=== PATIENT | male | born 1945 | race Caucasian/White ===

== ENCOUNTER 2018-11-06 14:39 | Inpatient (IN) ==
[2018-11-06 17:28] LABS: BASO# 0.03 X1000 (0.0-0.2); BASO% 0.4 % (0.0-0.8); EOS# 0.14 X1000 (0.0-0.7); EOS% 1.8 % (0.0-10.0); HEMATOCRIT 46.1 % (42.0-52.0); HEMOGLOBIN 15.7 g/dL (14.0-18.0); IMM GRAN# 0.02 X1000 (0.0-0.04); IMM GRAN% 0.3 % (0.0-0.5); LYMPH# 2.39 X1000 (1.2-3.4); LYMPH% 30.3 % (20.5-51.1); MCH 33.3 PG (27-31); MCHC 34.1 g/dL (33-37); MCV 97.9 FL (81-99); MONO# 0.95 X1000 (0.11-0.59); MONO% 12.1 % (1.7-9.3); MPV 9.8 FL (7.4-10.4); NEUT# 4.35 X1000 (1.4-6.5); NEUT% 55.1 % (42.2-75.2); PLT 178 X1000 (130-400); RBC 4.71 XMIL (4.7-6.1); RDW 12.3 % (11.5-14.5); WBC 7.88 X1000 (4.8-10.8)
[2018-11-06 17:39] LABS: URINE SOURCE CLEAN CATCH
[2018-11-06 17:44] LABS: BILIRUBIN URINE NEGATIVE (NEGATIVE); BLOOD URINE NEGATIVE (NEGATIVE); COLOR YELLOW; GLUCOSE URINE NEGATIVE (NEGATIVE); KETONE URINE NEGATIVE (NEGATIVE); LEUKOCYTES URINE NEGATIVE (NEGATIVE); NITRITE URINE NEGATIVE (NEGATIVE); PROTEIN URINE 30 mg/dL (NEGATIVE); SP GRAVITY URINE 1.026; TURBIDITY URINE CLEAR (CLEAR); UROBILINOGEN URINE NORMAL (NORMAL)
[2018-11-06 17:45] LABS: UR EPITHELIAL CELLS <10 /HPF (<10); URINE BACTERIA NEGATIVE /HPF; URINE RBC <10 /HPF (<10); URINE WBC <10 /HPF (<10)
[2018-11-06 17:56] LABS: AGAP 10; ALB/GLOB RATIO 1.8; ALBUMIN 4.4 g/dL (3.5-5.0); ALKALINE PHOSPHATASE 70 U/L (32-122); BUN 18 mg/dL (8-22); CALCIUM 9.1 mg/dL (8.8-10.2); CHLORIDE 107 mmol/L (98-107); COSMO 287; ESTIMATED GFR > 60; GLUCOSE 97 mg/dL (70-104); GOT 52 U/L (10-34); GPT 48 U/L (10-44); POTASSIUM 4.4 mmol/L (3.5-5.1); SODIUM 143 mmol/L (136-145); TCO2 26 mmol/L (25-35); TOTAL BILIRUBIN 0.58 mg/dL (0.20-1.00); TOTAL PROTEIN 6.8 g/dL (6.3-8.3)
[2018-11-06] MEDS ORDERED: NS 1,000 ML IV ONE ×2 (18:07→18:57)
--- NOTE | 2018-11-06 20:17 | PROVIDER DOCUMENTATION ---
This chart was entered by Breonna Monahan Scribe, acting as scribe for Jennifer Rivas MD. HPI-General Adult - General Chief Complaint: General Adult Stated Complaint: SWEATING.... CANT WALK/HANDS DRAWING Time Seen by Provider: 11/06/18 16:45 Source: patient, family Allergies/Adverse Reactions: Patient Allergies Allergy/AdvReac Type Severity Reaction Status Date / Time No Known Allergies Allergy Verified 11/06/18 19:40 Home Medications: Home Medication List Medication Instructions Recorded Confirmed Last Taken Type Aspirin 325 mg PO DAILY 11/06/15 11/06/18 11/05/15 11:00 History Bupropion S.r. [Wellbutrin Sr] 150 mg PO QAM 11/06/15 11/06/18 11/05/15 11:00 History Buspirone [Buspar] 10 mg PO BID 11/06/15 11/06/18 11/05/15 23:00 History Ca Citrate/Mgox/Vit D3/B6/Min 1 each PO DAILY 11/06/15 11/06/18 11/05/15 11:00 History [Citracal Plus Tablet] Glucosamine 1,500 mg PO DAILY 11/06/15 11/06/18 11/05/15 11:00 History Clopidogrel [Plavix] 75 mg PO DAILY 11/06/18 11/06/18 Unknown History Cyanocobalamin [Vitamin B-12] 2,500 mcg PO DAILY 11/06/18 11/06/18 Unknown History Isosorbide Mononitrate [Isosorbide 30 mg PO DAILY 11/06/18 11/06/18 Unknown History Mononitrate ER] Losartan [Cozaar] 100 mg PO DAILY 11/06/18 11/06/18 Unknown History Magnesium 400 mg PO DAILY 11/06/18 11/06/18 Unknown History Melatonin 5 mg PO HS 11/06/18 11/06/18 Unknown History Montelukast Sodium [Singulair] 10 mg PO DAILY 11/06/18 11/06/18 Unknown History Pantoprazole Sodium 40 mg PO DAILY 11/06/18 11/06/18 Unknown History Pyridostigmine [place] 60 mg PO DAILY 11/06/18 11/06/18 Unknown History Torsemide 10 mg PO DAILY 11/06/18 11/06/18 Unknown History Ubidecarenone [Co Q-10] 800 mg PO DAILY 11/06/18 11/06/18 Unknown History - History of Present Illness -Gen Adult Nature of Presenting Problems: 73 yom presents to the ed with c/o excessive sweating, BLE edema with weakness, hands/fingers drawing and possible dehydration. pt has been seen at and has been followed by neuro without a dx given. dr nascimento is not the pt pcp but will see pt at bedside. Location of Pain/Injury: reports: hand(s), lower extremity Quality of Pain: reports: aching Severity: reports: moderate Onset/Duration: reports: other (10 weeks) Timing: reports: still present Context/Activities at Onset: reports: light activity Modifying Factors: improves with: nothing Associated Symptoms: reports: diaphoresis, fatigue, genitourinary problems ( dark strong urine), weakness (BLE weakness), trouble walking. denies: back/ neck pain, chest pain, diarrhea, fever/chills, nausea, shortness of breath Similar Symptoms Previously?: Yes Recently seen or treated by another doctor?: Yes (has been seen in ) Review of Systems - Adult - REVIEW OF SYSTEMS - ADULT Constitutional: reports: see HPI, fatique. denies: chills, fever Eyes: reports: no symptoms reported Ears, Nose, Mouth & Throat: reports: no symptoms reported Cardiovascular: reports: edema. denies: chest pain, palpitations Respiratory: denies: cough, shortness of breath Gastrointestinal: denies: abdominal pain, diarrhea, nausea, vomiting Genitourinary: reports: see HPI, other (dark urine with strong smell). denies: dysuria Musculoskeletal: reports: see HPI, muscle aches, muscle weakness (BLE weakness) Integumentary: reports: no symptoms reported Neurological: denies: dizziness/vertigo, headache/migraines Psychiatric: reports: no symptoms reported Endocrine: reports: see HPI, excessive sweating Hematologic/Lymphatic: reports: no symptoms reported Allergic/Immunologic: reports: no symptoms reported Past History - Adult - PAST MEDICAL HISTORY-ADULT Review of Records: reports: Old Records Reviewed, Nursing Assessment Review, Medications Reviewed, Social history reviewed & non-contributory. Major Childhood Illnesses: reports: denies history Cardiovascular: reports: HTN, hyperlipidemia Respiratory: reports: denies history Gastrointestinal: reports: denies history Genitourinary: reports: denies history Musculoskeletal: reports: denies history Neurological: reports: denies history Psychiatric: reports: denies history Endocrine/Immune: reports: denies history Other Conditions: reports: denies history - PRIOR SURGERIES/PROCEDURES Surgical/Procedure History: reports: other (Barrets ) - IMMUNIZATION STATUS Childhood Immunizations: See Nurse Assessment Flu Vaccine: See Nurse Assessment - FAMILY HISTORY Family History: reviewed, not pertinent - SOCIAL HISTORY Smoking: denies Substance Use: denies Alcohol Use Frequency: never Living Situation: family Physical Exam-General - PHYSICAL EXAM-ADULT Initial Vital Signs Reviewed: Yes - CONSTITUTIONAL General Appearance: alert, no apparent distress - EYES Eyes: PERRL/EOMI, pale conjunctivae - HEAD, EARS, NOSE, MOUTH & THROAT HENMT: negative: moist mucous membranes (dry) - NECK Neck: full range of motion, normal inspection - RESPIRATORY Respiratory: chest non-tender, lungs clear, normal breath sounds - CARDIOVASCULAR Cardiovascular: normal peripheral pulses, tachycardia (110) - GASTROINTESTINAL (ABDOMEN) Abdominal Exam: normal bowel sounds, non tender, soft - LYMPHATIC Lymphatic: no adenopathy - MUSCULOSKELETAL Back Exam: normal inspection, no CVA tenderness, no vertebral tenderness Extremity: pedal edema, swelling (BLE), tenderness (BLE), other (hands/fingers contracted) - SKIN Integumentary: warm/dry, swelling (RLE 3+ LLE1+), tenderness (BLE edema) - NEUROLOGIC Neurologic: grossly normal Progress - PLAN OF CARE/RESULTS Progress/Plan/Lab Results: Vital Signs - 8 hr 11/06/18 15:13 Temperature 98.1 F Pulse Rate 110 H Respiratory Rate 18 Blood Pressure 156/76 O2 Sat by Pulse Oximetry 98 Result Diagrams: 11/06/18 17:10 11/06/18 17:10 - REASSESSMENT Reassessment #1 Time Reassessed: 19:25 Status: unchanged (Seen by Dr. Nascimento, plan is to admit him for further investigation.) - EKG 1 Time of EKG reading by physician:: 17:21 EKG Read and Signed by:: Paulina Encarnacion EKG Interpretation (*Must complete 3 of following elements*): Normal Rate: 101 Rhythm: ST with PAC with aberrant conduction [place]: normal QRS: normal [place] Interval: normal ST Wave: normal 2 Time of EKG reading by physician:: 17:22 EKG Read and Signed by:: Paulina Encarnacion EKG Interpretation (*Must complete 3 of following elements*): Normal (borderline ) Rate: 97 Rhythm: nsr [place]: normal QRS: normal [place] Interval: normal ST Wave: depressed (junctional ST depression, probably normal) Prior EKG Comparison: changes noted - CONSULTS/PCP/HOSPITALIST Notification #1 *Consult/PCP/Hospitalist*: dr nascimento coming to ed Reason/Comments: as a favor to the family per family Consult Disposition: Will see in ED Departure - Departure Date of Disposition Decision: 11/06/18 Time of Disposition Decision: 19:43 DIAGNOSIS: Orthostatic hypotension Weakness of lower extremity Qualifiers: Laterality: bilateral Qualified Code(s): R29.898 - Other symptoms and signs involving the musculoskeletal system Disposition: ADMITTED INPATIENT 09 Certified Medical Emergency: Emergent Condition: Stable Referrals and Follow-Ups: Netta Head MD [Primary Care Provider] - - Critical Care Note This patient required my direct & personal management of CC.: No Attestation - Physician/ KASI Attestation Patient care was provided by Advanced Practice Provider:: No The physician spent face to face time with patient:: Yes Advanced Practice Provider documentation review:: Supervising physician onsite and consulted in the evaluation and care of this patient. The physician did have a face to face encounter with the patient. This chart was documented by the indicated scribe, (Breonna Monahan Scribe) and accurately reflects the services I performed and decisions made by me, Jennifer Rivas MD, as attested by the provider's signature.
[2018-11-06 21:04] LABS: CK INDEX 1.6 (0.0-2.5); CK-MB 9.27 ng/mL (0.0-5.0)
[2018-11-06 21:09] LABS: C REACTIVE PROT QUANT 1.29 mg/L (0.00-5.00); MAGNESIUM 2.1 mg/dL (1.5-2.7); PHOSPHORUS 2.7 mg/dL (2.7-4.5)
[2018-11-06 21:19] LABS: FREE T4 1.52 ng/dL (0.93-1.70); TSH 2.52 uIUmL (0.27-4.20)
[2018-11-06] MEDS ORDERED: LOVENOX SUBQ SCH (21:30)
[2018-11-06] MEDS ORDERED: NS 1,000 ML ONE (21:35)
[2018-11-06] MEDS ORDERED: NS 50 ML ONE (21:35)
[2018-11-06] MEDS: PROTONIX IV SCH (21:47)
[2018-11-06] MEDS: NS 1,000 ML IV SCH (21:47)
--- NOTE | 2018-11-06 22:33 | HISTORY AND PHYSICAL ---
CHIEF COMPLAINT: Profuse sweating, not able to walk, muscle weakness, cramping for the last 3 months. HISTORY OF PRESENT ILLNESS: He is a 73-year-old white gentleman, who basically was brought in at the request of the family members to my office as a 2nd opinion. He had a slowly dwindling of his activities, not able to walk, with weakness and cramping. It has been started 11 weeks ago. The patient had an extensive workup done before. He had Lyme disease, negative. He had elevated CK, aldolase. Initially, thought it was myopathy from the Lipitor. It was stopped 11 weeks ago. Despite, continues to have muscle weakness, not able to walk. He was seen by the neurologist in [place]. The patient had EMG studies, which is consistent with myopathy, polymyositis. Acetyl receptor antibody was negative. The patient had a left thigh biopsy done by [facility], Dr. Mai. It showed denervation atrophy. The patient also referred for an LP and ENT evaluation. Family was confused. He was started on pyridostigmine 2 weeks ago , with extremely profuse sweating. I did review all the previous reports. He also had a positive KARLEE and positive anti DS DNA. It looks like more connective tissue diseases, possible polymyositis. Previous Work UP 1. The patient denies any skin rashes. No joint pains. The patient had an extensive workup done. MRI of the brain showed lacunar stroke on the left side. 2. CT of the chest and CT of the abdomen and pelvis unremarkable, except diverticulosis and enlarged prostate. There was no paraneoplastic disease noted. The patient did not have any ptosis or any difficulty in swallowing. The patient was orthostatic, given IV fluids. He was also seen in [facility]. I discussed with Dr. Sanz, and we will rule out connective tissue disease workup. Based on that, further treatment will be initiated. PAST MEDICAL HISTORY: 1. History of pulmonary embolism in the past. 2. Hypertension. 3. Acid reflux disease, with Hicks's esophagitis. 4. DVT in the right leg. 5. Coronary artery disease, by Dr. Fitch. 6. Benign prostatic hypertrophy. 7. Diverticulosis. 8. Lacunar stroke on the left side. PAST SURGICAL HISTORY: Three stents. Bilateral middle ear tubes. Bilateral cataract surgery. ALLERGIES: Not known. MEDICATIONS: Citracal, with 1 tablet daily. Aspirin 325 daily. Wellbutrin 150 daily. BuSpar 10 p.o. b.i.d. Plavix 75 daily. B12 2500 mcg daily. Isosorbide 60 daily. Cozaar 100 daily. Melatonin 5 mg daily. Singulair 10 daily. Protonix 40 daily. Pyridostigmine 60 daily. Magnesium 400 daily. Torsemide 10 mg daily. SOCIAL HISTORY: , 2nd time. Retired from [employer]. No smoking. Used to drink alcohol. Lives in [place], 2 children. FAMILY HISTORY: Father of colon cancer at 67. Father of NH at 82. Brother had a PID. HEALTH MAINTENANCE: Flu vaccine in 2018, pneumococcal vaccine in 2018, shingles 2017, colonoscopy [place] [address] Peoples in [place]. REVIEW OF SYSTEMS: HEENT: No headache. No vision problem. Chronic allergies , postnasal drainage. Seen by Dr. Dougherty. No sore throat. No tongue fasciculations. No weakness in the facial muscles. Neck: No neck pain. No goiter. No lymphadenopathy. Cardiopulmonary: No chest pain, shortness of breath, PND, or orthopnea. GI: No nausea, vomiting, abdominal pain, trouble swallowing. No bleeding per rectum. : No history of hesitancy, frequency, dysuria. Extremities: Cramping in the legs. Not able to walk. Weakness. Integument: No skin rashes. No joint pain. Neurologic: No focal symptoms or weakness or deficits noted. EXAMINATION: Vital Signs: He was orthostatic, as per the ED physician. Temperature is 98 degrees, tachycardic. Weight 5 feet, 9 inches. 220 pounds. HEENT: Atraumatic , normocephalic. Pupils equal, react to light. Bilateral cataracts removed. Tongue is in midline. No fasciculations noted. No facial asymmetry. No ptosis present. Neck: Supple. No lymphadenopathy. No goiter. Chest: Bilateral air entry. Heart: Sounds are regular. No murmurs appreciated. Abdomen: Belly is soft, nontender. Good bowel sounds. Rectal: Deferred. Extremities: Right leg is diffusely swollen, than the left side. Not able to feel the pulses. He is slightly weak and cramping in the feet and the legs. No obvious deficits noted. INVESTIGATIONS: CBC: White cell count 7.8, hematocrit 46, platelet 178,000, D- dimer 3.3. SMA-7 was normal. Elevated LFTs. LDH 380. CK 575. ProBNP 496. Urinalysis is clear. EKG, chest x- ray is pending. Previous workup in [facility] reviewed. MRI of the brain, CT chest, CT abdomen and pelvis unremarkable. EMG consistent with myopathy, with polymyositis. Elevated KARLEE and anti DS DNA. ASSESSMENT AND PLAN: 1. A 73-year-old white gentleman who came in with muscle weakness, status post scar in the left thigh muscle biopsy. Elevated CK, aldolase, myoglobin, consistent with myopathy. Based on the EMG studies, rule out polymyositis. The plan is repeat anti KARLEE, connective tissue cascade, anti Mi-2, anti synthetase antibody. Follow up on CK, aldolase, LDH. 2. Swelling of right leg, history of DVT. Venous Dopplers in both legs. Also, start on Lovenox. 3. Coronary artery disease with stents, stable. Continue aspirin, Plavix, isosorbide. 4. Hypotension. IV fluids. 5. Profuse sweating, probably related to medicines from pyridostigmine. Will discontinue, since acetyl receptor antibody is negative. 6. Reconcile home medicines. 7. DVT and GI prophylaxis with Lovenox and Protonix respectively. 8. I discussed with Dr. Sanz. Consult in the morning. cc: Sean Davidson MD MTDD
[2018-11-07] MEDS: MAG-OX PO SCH (08:12)
[2018-11-07] MEDS: BUSPAR PO SCH ×2 (08:12→22:21)
[2018-11-07] MEDS: PLAVIX PO SCH (08:12)
[2018-11-07] MEDS: IMDUR PO SCH (08:12)
[2018-11-07] MEDS: DEMADEX PO SCH (08:13)
[2018-11-07] MEDS: VITAMIN B-12 PO SCH (08:13)
[2018-11-07] MEDS: WELLBUTRIN SR PO SCH (08:14)
[2018-11-07] MEDS: ASPIRIN PO SCH (08:14)
[2018-11-07] MEDS: SINGULAIR PO SCH (08:14)
[2018-11-07] MEDS: NS 1,000 ML IV SCH ×2 (08:16→10:02)
--- NOTE | 2018-11-07 08:21 | EKG Report ---
Test Performed on : 11/06/2018 5:22:01 PM Test Reason : cp Blood Pressure : / mmHG Vent. Rate : 097 BPM Atrial Rate : 097 BPM P-R Int : 146 ms QRS Dur : 080 ms QT Int : 354 ms P-R-T Axes : 028 009 027 degrees QTc Int : 449 ms Normal sinus rhythm. Junctional ST depression, probably normal Borderline ECG No previous ECGs available Unconfirmed Result
[2018-11-07] MEDS ORDERED: VITAMIN B-12 PO SCH (09:00)
[2018-11-07] MEDS ORDERED: WELLBUTRIN SR PO SCH (09:00)
[2018-11-07] MEDS ORDERED: GLUCOSAMINE PO SCH (09:00)
[2018-11-07] MEDS ORDERED: IMDUR PO SCH (09:00)
[2018-11-07] MEDS ORDERED: DEMADEX PO SCH (09:00)
[2018-11-07] MEDS ORDERED: PLAVIX PO SCH (09:00)
[2018-11-07] MEDS ORDERED: SOLU-MEDROL IV SCH (09:00)
[2018-11-07] MEDS ORDERED: SINGULAIR PO SCH (09:00)
[2018-11-07] MEDS: PATIENT'S OWN MED PO SCH (09:28)
[2018-11-07] MEDS: GLUCOSAMINE 500 MG/CHONDROITIN 400 MG PO SCH (09:57)
[2018-11-07] MEDS: SOLU-MEDROL 1,000 MG in NS 100 ML IV SCH (09:57)
[2018-11-07] MEDS: LOVENOX SUBQ SCH ×2 (10:22→22:22)
[2018-11-07] MEDS ORDERED: MELATONIN 5 MG PO SCH (21:00)
[2018-11-07] MEDS: PROTONIX IV SCH (22:21)
[2018-11-07] MEDS: MELATONIN PO SCH (22:21)
--- NOTE | 2018-11-08 01:06 | PROGRESS NOTE ---
DATE: 11/07/2018 SUBJECTIVE: The patient complains off excessive drenching sweats for the last 11 weeks. Also, complains of some muscle stiffness, not able to walk. CK, LDH, AST, ALT were high. However, sedimentation rate, CRP were normal. Discussed with Dr. Sanz on the telephone. He agreed the patient has some type of myopathy, questionable polymyositis. Solu-Medrol 1 g IV daily for 3 days. Venous Doppler showed DVT on the right side, all the way to the common femoral floating. He had multiple DVTs in the past. Family was at bedside. EXAMINATION: Vital Signs: Temperature is 98 degrees, slightly tachycardic. Blood pressure is 140/76, 94% on room air. HEENT: Has excessive sweating. Neck: Supple. Chest: Clear. Heart: Sounds are regular. Abdomen: Belly is soft, nontender. Extremities: The right leg is swelled up, compared to the left side. Stiffness of the muscle and cramping. LABS: Myoglobin is high. ProBNP 496. PSA 473. ASSESSMENT AND PLAN: 1. Myopathy, suspicious for polymyositis. No evidence of malignancy. PSA was normal. IV Solu- Medrol 1 mg daily for 3 days. 2. Excessive sweating, hyperhidrosis. Etiology was not clear. Hydration. 3. 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 He needs to be on lifelong anticoagulants. We will do the thrombophilia workup. 4. Coronary artery disease, with multiple stents, on aspirin and Plavix. 5. Gastrointestinal prophylaxis with IV Protonix. 6. Follow up on the connective tissue cascade. 7. Anti Mi-2 and thrombophilia workup, and antisynthetase antibodies. 8. Physical therapy for ambulation. 9. Coordination of the care with family members and the consultants. LEVEL OF DOCUMENTATION: Almost 35 minutes. cc: Sean Davidson MD
[2018-11-08] MEDS: NS 1,000 ML IV SCH ×2 (05:13→10:53)
[2018-11-08 08:55] LABS: CK INDEX 1.7 (0.0-2.5); CK-MB 8.4 ng/mL (0.0-5.0)
[2018-11-08] MEDS: SOLU-MEDROL 1,000 MG in NS 100 ML IV SCH (09:39)
[2018-11-08] MEDS: VITAMIN B-12 PO SCH (09:40)
[2018-11-08] MEDS: ASPIRIN PO SCH (09:42)
[2018-11-08] MEDS: LOVENOX SUBQ SCH ×2 (09:42→23:20)
[2018-11-08] MEDS: BUSPAR PO SCH ×2 (09:43→23:21)
[2018-11-08] MEDS: WELLBUTRIN SR PO SCH (09:43)
[2018-11-08] MEDS: SINGULAIR PO SCH (09:43)
[2018-11-08] MEDS: GLUCOSAMINE 500 MG/CHONDROITIN 400 MG PO SCH (09:43)
[2018-11-08] MEDS: PLAVIX PO SCH (09:44)
[2018-11-08] MEDS: MAG-OX PO SCH (09:44)
[2018-11-08] MEDS: DEMADEX PO SCH (09:44)
[2018-11-08] MEDS: IMDUR PO SCH (09:44)
[2018-11-08] MEDS: PATIENT'S OWN MED PO SCH (10:53)
--- NOTE | 2018-11-08 12:44 | Extremity Venous Study ---
PROCEDURE NAME: Venous U/S Bilateral Legs - 11/06/2018 PROCEDURE: Bilateral lower extremity venous duplex and color-flow imaging study using the [employer] V[employer] E9 ultrasound system with a 9L-D transducer on a 73-year-old male. REFERRING PHYSICIAN: Dr. Osman Davidson CLOTH TESTER: Gladys Mckeon, TORREY INDICATIONS: Bilateral lower extremity pain and swelling suggestive of deep venous thrombosis. FINDINGS: The right common femoral vein and its branches, the deep and superficial femoral veins were satisfactorily imaged. There appears to be an acute deep venous thrombosis extending into the right common femoral vein from the right saphenofemoral junction. The deep venous branches of the right common femoral vein were compressible and had flow through them. The right popliteal vein was compressible and had flow through it without evidence of thrombus. The deep veins below the right knee were all compressible and had flow through them. The superficial veins, the great and small saphenous veins had clot within them, which appeared to be acute. The left common femoral vein and its branches, deep and superficial femoral veins were also satisfactorily imaged. They had flow through them and were compressible. The left popliteal vein and deep veins below the left knee were all compressible and had flow through them. The superficial veins of the left lower extremity were compressible throughout their length. INTERPRETATION: Acute superficial venous thrombosis involving the small and great saphenous veins. The clot within the right great saphenous vein extends into the right common femoral vein. There was no evidence of acute deep or superficial venous thrombosis involving the left lower extremity. cc: MD Sean Rangel MD
[2018-11-08] MEDS: SODIUM CHLORIDE 0.9% INJ SCH (23:20)
[2018-11-08] MEDS: PROTONIX IV SCH (23:20)
[2018-11-08] MEDS: MELATONIN PO SCH (23:21)
--- NOTE | 2018-11-09 03:53 | PROGRESS NOTE ---
DATE: 11/08/2018 SUBJECTIVE: I appreciated Dr. Sanz's input. Still, would try to unravel the diagnosis of his medical condition of muscle stiffness and sudorrhea. He had an extensive workup done from the previous neurologist. It includes EMG studies and muscle biopsy. Last night, he was drenching with sweats and dry mouth. REVIEW OF SYSTEMS: No chest pain, shortness of breath. Bleeding at the site of the Lovenox. He also has swelling of the right leg. INVESTIGATIONS: CK was high. Myoglobulin was high. Aldolase was high. PSA was normal. Anti FREEDOM panel connective tissue cascade was negative. ASSESSMENT AND PLAN: 1. Deep venous thrombosis, recurrent in the right leg, with pulmonary embolism. Thrombophilia workup is pending. Continue on Lovenox 1 mg of p.o. b.i.d. 2. Bleeding at the site. Hold aspirin. Continue on Plavix. 3. Coronary artery disease, with multiple stents, on Plavix, isosorbide. 4. Elevated CK, myoglobin, aldolase after stopping the statins. Positive CK. Normal sedimentation rate, normal CRP. Etiology is not clear. 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 Differential diagnosis: Neuromyotonia. Will check the voltage-gated potassium channel antibodies. 5. Currently, is getting IV steroids 1 g daily for 3 days. 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 I will discuss with the neurologist as well, and also consider carbamazepine or phenytoin for spasms. It is a very complex case. I need to coordinate to get the diagnosis between the senior security analyst and neurologist. Discussions were made with the family. Agreeable to stay in the hospital until he gets better. LEVEL OF DOCUMENTATION: 35 minutes. cc: Sean Davidson MD
[2018-11-09] MEDS: NS 1,000 ML IV SCH (05:28)
[2018-11-09] MEDS: GLUCOSAMINE 500 MG/CHONDROITIN 400 MG PO SCH (09:27)
[2018-11-09] MEDS: SOLU-MEDROL 1,000 MG in NS 100 ML IV SCH (09:27)
[2018-11-09] MEDS: DEMADEX PO SCH (09:28)
[2018-11-09] MEDS: WELLBUTRIN SR PO SCH (09:28)
[2018-11-09] MEDS: BUSPAR PO SCH ×2 (09:28→21:16)
[2018-11-09] MEDS: IMDUR PO SCH (09:29)
[2018-11-09] MEDS: MAG-OX PO SCH (09:29)
[2018-11-09] MEDS: VITAMIN B-12 PO SCH (09:29)
[2018-11-09] MEDS: PLAVIX PO SCH (09:30)
[2018-11-09] MEDS: SINGULAIR PO SCH (09:31)
[2018-11-09] MEDS: PATIENT'S OWN MED PO SCH (09:31)
--- NOTE | 2018-11-09 19:35 | CONSULTATION ---
DATE OF CONSULTATION: 11/09/2018 HISTORY OF PRESENT ILLNESS: Mr. Nagy is 73 years old and he reports stiffness in the limbs, unsteady gait, profuse sweating. History from the patient, confirmed by attentive family at the bedside, but still of uncertain validity, is that he went to bed one night, 11 weeks ago feeling very well with no gait difficulty, limb weakness, stiffness, and no significant discomfort in the limbs. He woke the next morning, unable to stand and walk because of stiffness in the leg muscles. When he attempted to use his hands, there was involuntary contraction (he demonstrates fingers flexed at the MP joints and extended at the IP joints). He reports requiring help to get around. He reports stable course over the next several weeks with no significant improvement and no deterioration. When he was sitting or reclined and relaxed, he did not notice discomfort or definite abnormal muscle contraction in the limbs. At times, there would be occasional spontaneous posturing of the hands as described above, but more often that was triggered by attempts to use the hands. He noticed that when he gripped something firmly, he could not let go quickly. He noticed stiffness in the legs would occur when he attempted to bear weight, but did not seem present while not bearing weight. Symptoms did not generally wake him from sleep. Right and left limbs were equally afflicted. He reports extensive sweating, more prominent during sleep. He reports sleeping for 1 to 2 hours and then getting up to change bed clothes and sheets. His sleep was disturbed more by sweating than by the muscle stiffness and contraction. He reports 20 pounds weight loss over the first 4 to 6 weeks with this illness. There was no trouble chewing or swallowing, no slurred speech, no loss of appetite. He did not record fever. He did not report hard shaking chills. There was no skin rash. After the first 4 to 6 weeks, weight stabilized and he has not lost more weight. There was no associated vision disturbance, facial asymmetry, abnormal facial muscle contraction, ptosis. He does not report specific loss of muscle power in the limbs. He did not notice definite incoordination. His gait was unsteady because of stiffness in the legs. He fell a few times, but has not fallen in recent weeks. There was no incontinence. He has had extensive workup in recent months. All imaging reported unremarkable. He has had neurology evaluation with Dr. Goss in [place]. Mr. Nagy provided a copy of the EMG report showing increased motor unit recruitment and prominent polyphasic motor unit potentials recorded in several muscles, but no spontaneous activity. Nerve conduction study showed evidence of peripheral neuropathy. There was subsequent muscle biopsy which was remarkable only for minor denervation changes. He has had extensive lab work with no definite findings. There was low titer acetylcholine receptor antibody reported. All other autoimmune panel negative. He had a trial with pyridostigmine without benefit. CK was elevated 575, 495. Aldolase slightly elevated 8.2. Myoglobin elevated at 290. Sed rate 5. AST 47, 52 and ALT 48. Normal TSH and free T4. Calcium 9.1. Positive KARLEE, DS-DNA slightly elevated at 212. He had a trial off of his statin drug with no significant benefit reported. He started high dose steroids here a few days ago and reports definite significant improvement. PHYSICAL EXAMINATION: On exam, Mr. Nagy is awake, alert, attentive, appropriate. Speech is not dysarthric. Language function is intact. Recent and remote memory are good. Head and neck are unremarkable. Hands and feet are warm. There is significant pitting edema distally and symmetrically in the legs. Visual kiran are full, tested by confrontational finger counting with both eyes open. Extraocular movements are full. Facial motility is normal and symmetric. Facial sensation is intact to pinprick and light touch testing. Gag is intact. Tongue is midline. Palate is midline. Hearing is fair. Shoulder shrug is equal. He has good power in the arms and legs. I could not find definite loss of muscle power in any 1 muscle or group of muscles. There is inconsistent french binding folder myotonia bilaterally. I could not elicit percussion myotonia. Tone seems a little bit increased throughout, more in the legs than the arms. He did well on gguw-vw-[id number] and agzbfh-[id number] testing bilaterally. He performed rapid alternating movements well with the hands. He reports good pinprick appreciation over the hands. He has minimal stocking pattern of sensory loss to pinprick at the ankles. Proprioception is good. Reflexes are 1+ at the wrists, 2+ at the biceps, 1+ at the knees, trace at the ankles bilaterally. Plantar response is silent bilaterally. Gait is little bit wide-based, more prominently antalgic. He stood without assistance. He took steps without assistance. He was able to place his feet properly for heel-to-toe tandem walking without assistance. He was able to partially squat and rise without assistance. IMPRESSION: Reported stiffness in the limbs, EMG raising concern for myopathy without definitive findings, unremarkable muscle biopsy, mostly unremarkable extensive lab work. No definite evidence of encephalopathy or myelopathy. There is nerve conduction and minimal clinical evidence of peripheral neuropathy. His report of sudden onset with stable course is difficult to with a degenerative neurologic process. Associated night sweats and weight loss are noted. I do not have any urgent suggestion. I told Mr. Nagy and his family that we might repeat the EMG, continue with autoimmune lab workup and check spinal fluid. However, I think best management would be to consider referral to a neuromuscular clinic. If Mr. Nagy would like to have further workup in [place], I will be glad to try to arrange that. Otherwise, he might follow up with Dr. Goss or, as I have recommended, accept referral to a neuromuscular clinic. Thanks for asking me to see Mr. Nagy. cc: MD Sean Spain III, MD [facility] HOSPITALMargarita
[2018-11-09 19:51] LABS: HEMOGLOBIN 13.4 g/dL (14.0-18.0); IMM GRAN# 0.05 X1000 (0.0-0.04); IMM GRAN% 0.7 % (0.0-0.5); LYMPH# 0.73 X1000 (1.2-3.4); LYMPH% 9.6 % (20.5-51.1); MCH 33.5 PG (27-31); MCHC 33.5 g/dL (33-37); MONO# 0.31 X1000 (0.11-0.59); MONO% 4.1 % (1.7-9.3); MPV 10.2 FL (7.4-10.4); NEUT# 6.52 X1000 (1.4-6.5); NEUT% 85.6 % (42.2-75.2); PLT 168 X1000 (130-400); RDW 12.4 % (11.5-14.5); WBC 7.61 X1000 (4.8-10.8)
[2018-11-09 20:18] LABS: AGAP 10; ALB/GLOB RATIO 1.5; ALBUMIN 3.7 g/dL (3.5-5.0); ALKALINE PHOSPHATASE 55 U/L (32-122); BUN 27 mg/dL (8-22); CALCIUM 9.1 mg/dL (8.8-10.2); CHLORIDE 105 mmol/L (98-107); COSMO 292; CREATININE 0.8 mg/dL (0.7-1.2); ESTIMATED GFR > 60; GLUCOSE 166 mg/dL (70-104); GOT 26 U/L (10-34); GPT 35 U/L (10-44); POTASSIUM 3.7 mmol/L (3.5-5.1); SODIUM 142 mmol/L (136-145); TCO2 27 mmol/L (25-35); TOTAL BILIRUBIN 0.34 mg/dL (0.20-1.00); TOTAL PROTEIN 6.1 g/dL (6.3-8.3)
--- NOTE | 2018-11-09 20:34 | PROGRESS NOTE ---
DATE: 11/09/2018 SUBJECTIVE: I discussed with Dr. Leung to evaluate the previous EMG studies, and pending the diagnosis of neuromyotonia. Patient is slightly improving with steroids. I did review the previous workup so far. Voltage-gated potassium channels were negative. ROLLY was negative. He still has some stiffness and decreased hyperhidrosis. EXAMINATION: Vital Signs: Temperature is 98 degrees, vitals are stable. HEENT: Within normal limits. Neck: Supple. Chest: Clear. Heart: Sounds are regular. Abdomen: Belly is soft, nontender. Extremities: He still has some stiffness. Able to ambulate. LABS: CBC: White cell count 7.6, hematocrit 40, platelet count 168,000. Protein C is normal. Protein S is normal. Antithrombin III slightly low. Homocystine is normal. Anti-FREEDOM antibody, anti-CAMPAIGN ANALYST antibody, anti-phospholipid antibody, connective tissue cascade, is all negative. ASSESSMENT AND PLAN: 1. Hyperhidrosis, muscle stiffness, consistent with neuromyotonia. No paraneoplastic syndrome identified. It is presumed to be autoimmune disease. However, it is a very complex case. I did discuss with Dr. Sanz, as well as Dr. Leung. It does not appear to be flaccid myopathy. It does not appear to be ALS. All the metabolic panels were normal. It did not improve after stopping the statin. 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 Will continue on IV 1 g steroids for 3 days, which he started on 11/07, 11/08, and 11/09. 2. For spasms, consider using carbamazepine. 3. Deep vein thrombosis, on Lovenox. Slowly swap it to new oral anticoagulant. 4. Hyperhidrosis. Stable on IV fluids. 5. We will discuss with the family about this to input. Would consider neuromuscular clinic at [facility]. 6. Will follow up. LEVEL OF DOCUMENTATION: 25 minutes. cc: Sean Davidson MD
[2018-11-09] MEDS: SODIUM CHLORIDE 0.9% INJ SCH (21:15)
[2018-11-09] MEDS: LOVENOX SUBQ SCH (21:15)
[2018-11-09] MEDS: PROTONIX IV SCH (21:15)
[2018-11-09] MEDS: MELATONIN PO SCH (21:16)
[2018-11-10] MEDS: VITAMIN B-12 PO SCH (09:04)
[2018-11-10] MEDS: WELLBUTRIN SR PO SCH (09:04)
[2018-11-10] MEDS: DEMADEX PO SCH (09:04)
[2018-11-10] MEDS: SINGULAIR PO SCH (09:05)
[2018-11-10] MEDS: MAG-OX PO SCH (09:05)
[2018-11-10] MEDS: BUSPAR PO SCH ×2 (09:05→21:58)
[2018-11-10] MEDS: GLUCOSAMINE 500 MG/CHONDROITIN 400 MG PO SCH (09:06)
[2018-11-10] MEDS: PLAVIX PO SCH (09:06)
[2018-11-10] MEDS: IMDUR PO SCH (09:08)
[2018-11-10] MEDS: PATIENT'S OWN MED PO SCH (09:09)
[2018-11-10] MEDS: LOVENOX SUBQ SCH ×3 (09:09→22:04)
[2018-11-10] MEDS: SOLU-MEDROL 1,000 MG in NS 100 ML IV SCH (09:10)
--- NOTE | 2018-11-10 13:50 | PROGRESS NOTE ---
DATE: 11/10/2018 SUBJECT: Appreciated Dr. Leung consult, Dr. Sanz. Currently the diagnosis still baffling. Dr. Leung believes he needs to go to the [facility]. He is exhibiting neuromyotonia and sudorrhea. Sweating is much improved. Still has some twitching and stiffness, slowly improving. He did receive 3 days of IV steroids 1 g and tapered to the 60 mg in the morning. It looks like more autoimmune process. All the serological testing was negative. Follow up on connective tissue cascade was negative. CK, aldolase, myoglobin were high, normal sedimentation rate. I had a long discussion with the patient at bedside with the . We will attempt to send to [facility] on Monday. Right leg swelling is much improved. There were no further episodes of sweating. No chest pain, shortness of breath. PHYSICAL EXAMINATION: Vital signs: Temperature is 98 degrees, pulse is 96, blood pressure is stable. 93% on room air. HEENT: Within normal limits. No lymphadenopathy. Chest: Clear. Heart: Sounds are regular. Right leg swelling is improved. He still has some stiffness noted. INVESTIGATIONS: So far, yesterday CBC was normal. SMA 7 was normal. ASSESSMENT AND PLAN: 1. Recurrent pulmonary embolism and thrombophilia. Continue lifelong anticoagulation. Will change it to Xarelto on Monday. Continue on Lovenox twice a day and DC aspirin. 2. CAD, continue on Plavix. 3. Neuromyotonia with hyperhidrosis. Dr. Leung thinks it does not appear to be myasthenia or Angella Gehrig's disease. It looks like autoimmune process and there is no association so far with malignancy and changing the steroids to 60 by mouth and also added carbamazepine 200 t.i.d. for his muscle spasms and will discuss with [facility] in [facility]. Family is agreeable. LEVEL OF DOCUMENTATION: 25 minutes. cc: Sean Davidson MD
[2018-11-10] MEDS: TEGRETOL PO SCH ×2 (14:42→18:44)
[2018-11-10] MEDS: SODIUM CHLORIDE 0.9% INJ SCH (21:59)
[2018-11-10] MEDS: PROTONIX IV SCH (21:59)
[2018-11-10] MEDS: MELATONIN PO SCH (21:59)
[2018-11-11] MEDS: PLAVIX PO SCH (09:57)
[2018-11-11] MEDS: TEGRETOL PO SCH ×3 (09:57→17:01)
[2018-11-11] MEDS: BUSPAR PO SCH ×2 (09:57→22:26)
[2018-11-11] MEDS: WELLBUTRIN SR PO SCH (09:57)
[2018-11-11] MEDS: IMDUR PO SCH (09:57)
[2018-11-11] MEDS: VITAMIN B-12 PO SCH (09:57)
[2018-11-11] MEDS: MAG-OX PO SCH (09:57)
[2018-11-11] MEDS: LOVENOX SUBQ SCH ×2 (09:58→22:25)
[2018-11-11] MEDS: PATIENT'S OWN MED PO SCH (09:58)
[2018-11-11] MEDS: GLUCOSAMINE 500 MG/CHONDROITIN 400 MG PO SCH (09:58)
[2018-11-11] MEDS: DEMADEX PO SCH (09:58)
[2018-11-11] MEDS: ASPIRIN PO SCH (09:59)
[2018-11-11] MEDS: SINGULAIR PO SCH (10:04)
[2018-11-11] MEDS: PREDNISONE PO SCH (10:04)
--- NOTE | 2018-11-11 15:54 | PROGRESS NOTE ---
DATE: 11/11/2018 SUBJECTIVE: Patient is lot better. Hyperhidrosis is decreasing. Myotonia is also improving. He is ambulating very well. Eating well. His steroids changed to the 60 mg Po and Right leg swelling is much improved. EXAMINATION: Vital signs: Temperature is 98 degrees, pulse is 85, blood pressure is 150/80, 93% on room air. HEENT: Exam within normal limits. Neck: Supple. No lymphadenopathy. Chest: Bilateral air entry. Heart: Sounds are regular. Abdomen: Belly is soft, nontender. Extremities: Decrease right leg swelling. Myotonia is improving. ASSESSMENT AND PLAN: 1. 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 No paraneoplastic syndromes identified. Changed the steroids to 60 mg daily. 2. Myopathy, idiopathic. EMG studies nonconclusive for myasthenia and ALS. Continue the carbamazepine. 3. History of Hicks's esophagitis. Continue on PPI. 4. Deep vein thrombosis in the right leg. On Lovenox, slowly changing to Xarelto. 5. Coronary artery disease (CAD), stable. On Plavix. Discontinue aspirin. 6. Discontinue IV fluids. 7. Follow up on pending workup for thrombophilia. 8. Check the labs in the morning. CK and aldolase. 9. Appreciated consults with Dr. Sanz and Dr. Leung. 10. We will slowly attempt to get an appointment to see [facility]. 11. He also needs to repeat EMG studies. LEVEL OF DOCUMENTATION: 25 minutes. cc: Sean Davidson MD MTDD
[2018-11-11] MEDS: NS 1,000 ML IV SCH (22:24)
[2018-11-11] MEDS: PROTONIX IV SCH (22:25)
[2018-11-11] MEDS: MELATONIN PO SCH (22:25)
[2018-11-11] MEDS: SODIUM CHLORIDE 0.9% INJ SCH (22:25)
[2018-11-12] MEDS: DEMADEX PO SCH (09:43)
[2018-11-12] MEDS: MAG-OX PO SCH (09:43)
[2018-11-12] MEDS: WELLBUTRIN SR PO SCH (09:44)
[2018-11-12] MEDS: SINGULAIR PO SCH (09:44)
[2018-11-12] MEDS: BUSPAR PO SCH ×2 (09:44→23:02)
[2018-11-12] MEDS: PLAVIX PO SCH (09:44)
[2018-11-12] MEDS: TEGRETOL PO SCH ×3 (09:44→17:36)
[2018-11-12] MEDS: PREDNISONE PO SCH (09:45)
[2018-11-12] MEDS: VITAMIN B-12 PO SCH (09:46)
[2018-11-12] MEDS: LOVENOX SUBQ SCH ×2 (09:46→22:53)
[2018-11-12] MEDS: GLUCOSAMINE 500 MG/CHONDROITIN 400 MG PO SCH (09:46)
[2018-11-12] MEDS: IMDUR PO SCH (09:46)
[2018-11-12] MEDS: ASPIRIN PO SCH (09:55)
[2018-11-12] MEDS: PATIENT'S OWN MED PO SCH (09:56)
--- NOTE | 2018-11-12 20:01 | PROGRESS NOTE ---
DATE: 11/12/2018 SUBJECTIVE: The patient is remarkably doing very well and changing to prednisone 60 mg daily. Followup CK is normal. He did not have any myotonia. Right leg swelling is much improved. Examination: Vital Signs: On examination, 97, tachycardic. Vitals are stable. 90% room air. HEENT: Within normal limits. Neck: Supple. No lymphadenopathy. Chest: Clear. HEART: Heart sounds are regular.Abdomen: Belly is soft, nontender. Good bowel sounds. INVESTIGATIONS: CK and aldolase was normal. All thrombophilia workup was negative for lupus anticoagulant antiphospholipid syndrome. Protein C activity, protein X activity , factor Leiden factor, prothrombin. ASSESSMENT AND PLAN: 1. DVT in the right leg. Continue on Lovenox. We will change to Xarelto. 2. Neuromyotonia with myopathy, dramatic improvement with IV steroids. Needs IV gammaglobulin based on the clinical course. We are going to attempt to call [facility], get an appointment soon. 3. Hemochromatosis, stable. 4. Hicks esophagitis. Continue on PPI. 5. Continue present treatment and will attempt to reach the [facility] and appreciated Dr. Sanz consult. LEVEL OF DOCUMENTATION: 25 minutes. cc: Sean Davidson MD MTDD
[2018-11-12] MEDS: PROTONIX IV SCH (22:54)
[2018-11-12] MEDS: SODIUM CHLORIDE 0.9% INJ SCH (22:54)
[2018-11-12] MEDS: MELATONIN PO SCH (22:55)
[2018-11-12] MEDS: NS 1,000 ML IV SCH (22:55)
[2018-11-13 07:39] VITALS: BP 134/65
[2018-11-13] MEDS: SINGULAIR PO SCH (09:15)
[2018-11-13] MEDS: PREDNISONE PO SCH (09:15)
[2018-11-13] MEDS: VITAMIN B-12 PO SCH (09:16)
[2018-11-13] MEDS: GLUCOSAMINE 500 MG/CHONDROITIN 400 MG PO SCH (09:16)
[2018-11-13] MEDS: PLAVIX PO SCH (09:17)
[2018-11-13] MEDS: BUSPAR PO SCH (09:17)
[2018-11-13] MEDS: TEGRETOL PO SCH (09:17)
[2018-11-13] MEDS: WELLBUTRIN SR PO SCH (09:17)
[2018-11-13] MEDS: MAG-OX PO SCH (09:17)
[2018-11-13] MEDS: IMDUR PO SCH (09:18)
[2018-11-13] MEDS: DEMADEX PO SCH (09:18)
[2018-11-13] MEDS: LOVENOX SUBQ SCH (09:19)
[2018-11-13] MEDS: PATIENT'S OWN MED PO SCH (09:25)
[2018-11-13] MEDS: ASPIRIN PO SCH (09:25)
--- NOTE | 2018-11-15 23:34 | DISCHARGE SUMMARY ---
ADMISSION DATE: 11/06/2018 DISCHARGE DATE: 11/13/2018 DISCHARGE DIAGNOSES: 1. Neuromyotonia, sudorrhea for the last 3 months due to Myopathy, etiology to be determined. SECONDARY DIAGNOSES: 1. Elevated CK due to myopathy. 2. Deep vein thrombosis in the right leg, recurrent, with previous history of pulmonary embolism. 3. Hypertension. 4. Hicks esophagitis. 5. History of hemochromatosis, stopped taking phlebotomy more than [address] Ochoa. 6. Coronary artery disease, with 3 stents. 7. Benign prostatic hypertrophy. 8. Diverticulosis. 9. 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 CONSULTS: 1. Dr. Sanz. 2. Dr. Leung. DIAGNOSTIC DATA: Venous Doppler on the legs: Acute superficial venous thrombosis of small greater saphenous vein; clot within the right greater saphenous vein extending into the right common femoral vein. There is no evidence of DVT in the left leg. LABORATORY DATA: 1. CBC: White cell count 7.8, hematocrit 46, platelets 178,000. Sedimentation rate is normal. 2. D-dimer 3.3. 3. Lupus inhibitor, protein C, protein S, antithrombin III, Leiden factor are within normal limits. 4. PSA is normal, 4.73. 5. Connective tissue screening, KARLEE, CCP antibody negative. 6. Leiden factor, prothrombin [id number] mutation were negative. BRIEF HISTORY: Please see the H and P that was done on 11/06/2018. In brief, this 73-year-old white gentleman patient of Dr. Head has been suffering from muscle stiffness and excessive sweating since 11 weeks ago. Initially it was thought statin drugs and Zetia, which were stopped. Despite, he continues to have hyperhidrosis, muscle twitching and stiffness. He was evaluated by the neurologist in [place], Dr. Goss. The patient had an extensive workup done in [place] for the last 2 months, which includes (1) EMG study, showing no evidence of Angella Gehrig disease or myasthenia gravis. Suspicious for myopathy. (2) The patient has persistently elevated CK, aldolase and myoglobin. (3) Muscle biopsy shows denervation; no significant evidence of myopathy noted. Serological testing was negative for ROLLY antibodies for stiff man syndrome. Voltage-gated channel antibodies were negative. Acetyl receptor antibody slightly positive. The patient was given pyridostigmine for worsening of his symptoms, not able to walk. 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 He continues to deteriorate, not able to walk, with swelling of right leg, stiffness and excessive sweating. The patient was given IV fluids for dehydration. HOSPITAL COURSE: The patient was admitted with the following reasons for further workup: 1. Neuromyotonia and hyperhidrosis. It appears to be he did not have any paraneoplastic disease. The patient had MRI of the brain, CT of the chest, and CT of the abdomen and pelvis. No evidence of malignancy. He had a Hicks esophagitis. Previous colonoscopy by Dr. fernandez was negative. 2. PSA was normal. I discontinued pyridostigmine which was not helping. 3. At some point, he had a positive KARLEE, anti-DS DNA suspicious for connective tissue disease. Further workup was negative. We were not able to perform further workup for polymyositis because of negative connective tissue cascade, predominantly antimitochondrial antibody anti- Mi-2 antibody and antisynthetase antibody. 4. After consulting with Dr. Sanz, it is possible myopathy idiopathic at this time. We started him on IV Solu-Medrol 1 g every day for 3 days. Subsequently his symptoms of hyperhidrosis and neuromyotonia were improved. Dr. Leung was consulted for second opinion. He looked at it. At this time his picture was very complex and in quandary. He wants to be referred to [facility] at [facility]. 5. Nevertheless, the patient's symptoms were much improved. He also had a positive DVT in the right leg which is extending into the common femoral vein. He was started on Lovenox, subsequently changed to Xarelto. Aspirin was stopped. The patient was able to walk without any sweating. No cramping, no stiffness noted. 6. I contacted [facility] rubber extrusion machine operator. The patient has been referred to [facility] and the on-call manager is going to call him for consultation for further follow up. At the time of discharge the patient was stable. Flu vaccine 06/25/2018, pneumococcal vaccine on 06/25/2018. DISCHARGE MEDICATIONS: 1. Wellbutrin 150 daily. 2. BuSpar 10 p.o. b.i.d. 3. Plavix 75 daily. 4. Vitamin B12, 2500 mcg daily. 5. Isosorbide 60 daily. 6. Losartan 100 daily. 7. Melatonin 5 mg daily. 8. Singulair 10 daily. 9. Protonix 40 daily. 10. Discontinue pyridostigmine. 11. Magnesium 400 daily. 12. Torsemide 10 mg daily. 13. Prednisone 60 daily. 14. Xarelto samples were given, pack 15 mg p.o. b.i.d. for 3 weeks, then change to 15 daily. DISCHARGE INSTRUCTIONS: Follow up with Dr. Sanz in Neurology Clinic at [facility], and Dr. Head for the primary care. cc: MD Sherron Jain MD Eston G. Norwood III, MD Emily M. McClure, MD MTDD
== END 2018-11-13 11:17 | disposition home or self-care (01) | DRG 92 ==
LOC: ED 14:39 → 4N 23:19
PROVIDERS: ADMIT Internal Medicine; ATTEND Internal Medicine
CPT/HCPCS: 80053; 81001; 81240; 81241; 82085; 82550; 82553; 82565; 83090; 83516; 83615; 83735; 83874; 83880; 84100; 84153; 84439; 84443; 84484; 85025; 85300; 85301; 85302; 85306; 85379; 85612; 85613; 85651; 85730; 86038; 86140; 86147; 86200; 86235; 93005; 93970; 96361; 96372; 96374; 99285; 99999; A9270; C9113; G0103; J1650; J2930; J7030; J7506; J7512; S0164; XXXXX